=== PATIENT | female | born 1960 ===

== ENCOUNTER 2016-08-15 14:19 | Emergency (ER) | payer MEDICAID ==
[2016-08-15 14:19] VITALS: BMI 24.4
[2016-08-15 14:37] VITALS: BP 128/78; PULSE 74; RESP 16; TEMP 97.9; O2SAT 98
--- NOTE | 2016-08-15 14:55 | C.PDOC ---
History Of Present Illness 55 yo female, no prior hx, presents with head injury. pt hit head at work yesterday. no loc. c/o of dizziness. no other injury or complaint Time Seen by Provider: 08/15/16 14:45 Chief Complaint (Nursing): Headache Past Medical History Reviewed: Historical Data, Nursing Documentation, Vital Signs Vital Signs: Last Vital Signs Temp 97.9 F 08/15/16 14:26 Pulse 74 08/15/16 14:26 Resp 16 08/15/16 14:26 BP 128/78 08/15/16 14:26 Pulse Ox 98 08/15/16 14:55 - Medical History PMH: Diabetes, HTN (pt denies), Hypercholesterolemia Family History: States: Unknown Family Hx - Social History Hx Alcohol Use: No Hx Substance Use: No - Immunization History Hx Tetanus Toxoid Vaccination: Yes Hx Influenza Vaccination: No Hx Pneumococcal Vaccination: No Review Of Systems Except As Marked, All Systems Reviewed And Found Negative. Neurological: Positive for: Headache Physical Exam - Physical Exam Appears: Well, No Acute Distress Skin: Normal Color, Warm, Dry Head: Normacephalic, Swelling (mild swelling, ttp, forehead) Eye(s): bilateral: Normal Inspection, PERRL, EOMI Nose: Normal Throat: Normal Neck: Normal Cardiovascular: Rhythm Regular Respiratory: Normal Breath Sounds Gastrointestinal/Abdominal: Normal Exam Back: Normal Inspection Extremity: Normal ROM ED Course And Treatment O2 Sat by Pulse Oximetry: 98 Medical Decision Making Medical Decision Making: ct head neg. pt well appearing, will give outpt f/u and return precautions Disposition - Disposition Disposition: HOME/ ROUTINE Disposition Time: 16:05 Condition: STABLE Additional Instructions: please follow up with your doctor. return to er with worsening symptoms or concerns. Prescriptions: Naproxen 500 mg PO BID #14 tab Instructions: Head Injury (ED) Print Language: TAIWANESE - Clinical Impression Clinical Impression: Head injury
--- NOTE | 2016-08-15 16:03 | CT ---
PROCEDURE: CT HEAD WITHOUT CONTRAST. HISTORY: trauma COMPARISON: None available. TECHNIQUE: Axial computed tomography images were obtained through the head/brain without intravenous contrast. Radiation dose: Total exam DLP = 981 mGy-cm. This CT exam was performed using one or more of the following dose reduction techniques: Automated exposure control, adjustment of the mA and/or kV according to patient size, and/or use of iterative reconstruction technique. FINDINGS: HEMORRHAGE: No intracranial hemorrhage. BRAIN: No mass effect or edema. No atrophy or chronic microvascular ischemic changes. VENTRICLES: Unremarkable. No hydrocephalus. CALVARIUM: Unremarkable. PARANASAL SINUSES: Unremarkable as visualized. No significant inflammatory changes. MASTOID AIR CELLS: Unremarkable as visualized. No inflammatory changes. OTHER FINDINGS: None. IMPRESSION: Normal CT of the Head.
== END 2016-08-15 16:12 | disposition home or self-care (01) ==
LOC: C.ER 14:19
DX: S09.90XA Unspecified injury of head, initial encounter (principal); X58.XXXA Exposure to other specified factors, initial encounter; Y92.89 Other specified places as the place of occurrence of the external cause